=== PATIENT | female | born 1960 | race Caucasian/White ===

== ENCOUNTER 2019-05-16 10:36 | Emergency (ER) | payer OTHER, SELFPAY ==
--- NOTE | ~2019-05-16 | XR_ITS ---
EXAMINATION: XR chest 2V DATE: 05/16/2019 11:33 INDICATION: Shortness of breath. Chest pain. TECHNIQUE: Frontal and lateral views of the chest were obtained. COMPARISON: None. FINDINGS: The chest demonstrates clear lungs without pneumonia, pleural effusion, or pneumothorax. Th e heart size is normal. IMPRESSION: 1. No acute cardiopulmonary disease. Reviewed, dictated and finalized at location A. [employer]
[2019-05-16 10:34] VITALS: BP 157/122; PULSE 88; RESP 18; TEMP 36.7; O2SAT 97
--- NOTE | 2019-05-16 10:34 | ECG_ITS ---
Measurements Intervals [place] Rate: 84 P: 44 MA: 165 QRS: -45 QRSD: 92 T: 59 QT: 367 QTc: 434 Interpretive Statements SINUS RHYTHM LEFT ANTERIOR FASCICULAR BLOCK BASELINE WANDER- I, II ABNORMAL ECG Electronically Signed On 05-17-2019 7:14:47 [employer] by Melchor Cisse D.O.
[2019-05-16 11:03] LABS: Basophils Percent Auto 0.4 % (0.2-1.2); Eosinophils Absolute Auto 0.2 K/mm3 (0-0.3); Eosinophils Percent Auto 3.4 % (0-4.4); Hematocrit 43.8 % (37.0-47.0); Hemoglobin 14.6 g/dL (12.0-15.0); Immature Granulocyte Absolute 0.01 K/mm3 (0.00-0.031); Immature Granulocyte Percent A 0.2 % (0-0.5); Lymphocytes Absolute Auto 1.56 K/mm3 (0.9-3.2); Lymphocytes Percent Auto 29.1 % (18.3-44.2); Mean Corpuscular HGB Conc 33.3 g/dl (32-36); Mean Corpuscular Hemoglobin 31.6 pg (26-34); Mean Corpuscular Volume 94.8 fl (80-100); Mean Platelet Volume 8.8 fl (7.4-10.4); Monocytes Absolute Auto 0.6 K/mm3 (0.1-0.6); Monocytes Percent Auto 11.6 % (2.6-8.5); Neutrophils Percent Auto 55.3 % (45.5-73.1); Platelet Count Result 158 k/mm3 (150-375); Red Blood Count 4.62 M/mm3 (4.2-5.4); Red Cell Distribution Width 12.7 % (11.5-14.5); White Blood Count 5.4 K/mm3 (4.5-10.0)
--- NOTE | 2019-05-16 11:12 | ED.SOB ---
HPI - SOB/Dyspnea General Chief Complaint: Shortness of Breath/Dyspnea Stated Complaint: SOB, CP Time Seen by Provider: 05/16/19 10:54 Source: patient Mode of arrival: EMS Limitations: no limitations History of Present Illness HPI Narrative: The pt is a 58 y/o female who presents to the ED, via EMS, c/o intermittent SOB onset one day ago. Pt states that she decided to go to work today, but started to experience SOB and CP at her desk. Pt notes her pain worsens with coughing. Pt reports a productive cough that has been present for months, but denies rhinorrhea, sore throat, fever, chills, and BLE edema. Pt notes that her left breast as felt as if it is getting larger for one month or so, but states she cannot see her OB until 06/02/19. Pt reports a PMHx of skull fracture leading to craniotomy. MD elicited complaint: shortness of breath Onset (ago): day(s) (1) Timing: intermittent Associated symptoms: chest pain (Worse with coughing), cough (Productive, present for months ) and other (Left breast feels as if it is getting larger (Onset one month ago)) Related Data Home Medications Medication Instructions Recorded Confirmed aspirin 81 mg PO DAILY 05/16/19 Allergies Allergy/AdvReac Type Severity Reaction Status Date / Time No Known Allergies Allergy Verified 05/16/19 10:40 Review of Systems Review of Systems: All systems reviewed & are unremarkable except as noted in HPI and below Constitutional: Constitutional: Denies chills and Denies fever(s) ENT: Denies sore throat and Denies other (Rhinorrhea) Cardiovascular: Cardiovascular: Reports chest pain (Worsens with coughing) and Denies leg edema (BLE) Respiratory: Respiratory: Reports cough (Productive, present for months) and Reports dyspnea (Intermittent) Integumentary/Breasts: Skin/Breast: Reports change in breast shape (Left breast feels as if it is getting larger, onset one month ago) FOR[facility]LY [facility] Past Medical History Medical History (Updated 05/16/19 @ 14:30 by Michael Garza MD) Skull fracture Surgical History Surgical History (Updated 05/16/19 @ 11:20 by Maico Yates) H/O craniotomy Social History Social History Smoking status: Current every day smoker Alcohol intake: current Exam Narrative: Exam Narrative: GENERAL: Well-appearing, well-nourished, and in no acute distress. HEAD: Normocephalic, atraumatic. ENT: Mucous membranes moist.. CHEST: Clear to auscultation. No respiratory distress. HEART: Regular rate and rhythm. Normal peripheral pulses. ABDOMEN: Soft, nontender, nondistended. EXTREMITIES: Normal range of motion. No edema. SKIN: Warm, dry, no rash. NEURO: Alert and oriented x3. Course Course Emergency Course: Suspect mild bronchitis from viral infection in combination with smoking cigarettes. Discharge with albuterol and prednisone since nebulizer treatment improved patient's symptoms. Still no wheezing. Vital Signs Vital signs: Vital Signs Temperature 98.0 F 05/16/19 10:34 Pulse Rate 88 05/16/19 10:34 Respiratory Rate 18 05/16/19 10:34 Blood Pressure 157/122 H 05/16/19 10:34 Pulse Oximetry 97 05/16/19 10:34 Temperature 98.0 F 05/16/19 10:34 Pulse Rate 74 05/16/19 13:43 Respiratory Rate 17 05/16/19 13:43 Blood Pressure 107/60 05/16/19 13:43 Pulse Oximetry 95 05/16/19 13:43 MDM - SOB/Dyspnea Lab Data Result diagrams: 05/16/19 10:58 05/16/19 10:58 Labs: Lab Results 05/16/19 05/16/19 05/16/19 Range/Units 10:58 10:58 10:58 WBC 5.4 (4.5-10.0) K/mm3 RBC 4.62 (4.2-5.4) M/mm3 Hgb 14.6 (12.0-15.0) g/dL Hct 43.8 (37.0-47.0) % MCV 94.8 (80-100) fl MCH 31.6 (26-34) pg MCHC 33.3 (32-36) g/dl RDW 12.7 (11.5-14.5) % Plt Count 158 (150-375) k/mm3 MPV 8.8 (7.4-10.4) fl Immature Gran % (Auto) 0.2 (0-0.5) % Neut % (Auto) 55.3 (45.5-73.1) % Lymph % (Auto) 29.1 (18.3-44.2) % [place] % (Auto)
[2019-05-16 11:16] LABS: Blood Urea Nitrogen 18 mg/dL (7-17); Calcium 9.4 mg/dL (8.4-10.2); Carbon Dioxide 26 mmol/L (22-30); Chloride 105 mmol/L (98-107); Estimated Glomerular Filt Rate > 60; Glucose 141 mg/dL (65-105); Potassium 3.7 mmol/L (3.4-5.0); Sodium 138 mmol/L (137-145)
[2019-05-16 11:42] VITALS: PULSE 66; RESP 100
[2019-05-16] MEDS: ALBUTEROL SULFATE NEB 2.5 MG/0.5 ML INH 5 MG INHALATION (12:02)
[2019-05-16] MEDS: IPRATROPIUM BR 0.02% INH SOLN 0.5 MG/2.5 ML VIAL INHALATION (12:02)
[2019-05-16 12:25] VITALS: BP 107/48; PULSE 77; RESP 16; O2SAT 98
[2019-05-16 12:26] LABS: D Dimer 0.37 ug/mL (<0.48)
[2019-05-16 12:29] LABS: Troponin I < 0.012 ng/mL (0.000-0.034)
[2019-05-16 13:43] VITALS: BP 107/60; PULSE 74; RESP 17; O2SAT 95
[2019-05-16 15:05] VITALS: BP 115/61; PULSE 73; RESP 19; O2SAT 96
== END 2019-05-16 15:08 | disposition home or self-care (01) ==
PROVIDERS: Emergency Provider Emergency Medicine; PCP Internal Medicine
DX: J20.9 Acute bronchitis, unspecified (principal); F17.210 Nicotine dependence, cigarettes, uncomplicated
CPT/HCPCS: 36415; 71046; 80048; 84484; 85025; 85380; 93005; 94640; 99284